=== PATIENT | male | born 1985 | race Caucasian/White ===

== ENCOUNTER 2019-06-30 10:36 | Emergency (ER) | payer SELFPAY ==
[2019-06-30 11:06] VITALS: BP 116/80
[2019-06-30] MEDS ORDERED: Tetan/Diph/Pertus SYR(Tdap)* 0.5 ML SYR(BOOSTRIX) use SYR contains LATEX IM ONE (11:17)
--- NOTE | 2019-06-30 11:18 | UC ---
Laceration HPI - HPI Summary HPI Summary: CHIEF COMPLAINT and HPI: This is a healthy 34-year-old who cut his left thumb with a razor approximately 20 hours ago. the patient has some minimal complaint of pain over the laceration site.he has no complaint of limited mobility or sensation. VITAL SIGNS & SaO2 REVIEWED. Within normal limits unless noted here. NURSES NOTE REVIEWED. Pt was cutting with a slip box changer last night and lacerated his left thumb. - History Of Current Complaint Chief Complaint: UCLaceration Stated Complaint: THUMB LACERATION Time Seen by Provider: 06/30/19 11:17 Pain Intensity: 0 - Allergies/Home Medications Allergies/Adverse Reactions: Allergies Allergy/AdvReac Type Severity Reaction Status Date / Time No Known Allergies Allergy Verified 06/30/19 11:06 Home Medications: Home Medications NK [No Home Medications Reported] 06/30/19 [History Confirmed 06/30/19] PMH/Surg Hx/FS Hx/Imm Hx - Additional Past Medical History Additional PMH: PAST MEDICAL HISTORY- patient denies significant past medical history CHRONIC and RECURRENT HEALTH PROBLEM LIST REVIEWED. Information relevant to present complaint: noncontributory VISIT HISTORY REVIEWED. MEDICATIONS & ALLERGIES REVIEWED. HYPERTENSION STATUS: FAMILY HISTORY: diabetes SOCIAL HISTORY: Smoker:patient is a smoker. Home: lives with his Employment: patient works in maintenance. Previously Healthy: Yes - Surgical History Surgical History: Yes Surgery Procedure, Year, and Place: eye surgery - Social History Alcohol Use: None Substance Use Type: Marijuana Substance Use Comment - Amount & Last Used: marijuana occasional Smoking Status (MU): Heavy Every Day Tobacco Smoker Type: Cigarettes Amount Used/How Often: 1/2 pack daily - Immunization History Most Recent Tetanus Shot: 15 years ago Review of Systems All Other Systems Reviewed And Are Negative: Yes Constitutional: Positive: Negative Respiratory: Positive: Negative Cardiovascular: Positive: Negative Gastrointestinal: Positive: Negative - Clavicle Fracture This is a very pleasant patient who unfortunately has sustained a closed clavicle fracture. On head to toe exam, no other significant injuries were found. Pain was addressed while the patient was in the emergency department. On x-ray, there is no significant evidence of shoulder injury or pneumothorax. On exam there is no tenting of the skin and no significant evidence of compartment syndrome, neurovascular compromise, or other process requiring immediate surgical intervention at this time. It is understood that other fractures, ligament injury, tendon injury, cartilage injury, and joint injury have been considered and cannot be completely excluded. Patient was reassessed after application of an arm sling and neurovascular status remained intact. Pain management and follow-up with an orthopedic surgeon was discussed. It is understood that if the patient is not improving as expected or if other new symptoms or signs of concern develop, other etiologies or diagnoses may need to be considered requiring other tests, treatments, consultations, and/or admission. The diagnosis, plan, expected course, follow-up, and return precautions were discussed and all questions were answered. Is Patient Immunocompromised?: No Physical Exam - Summary Physical Exam Summary: Appearance: The patient is well-appearing, is in no pain or distress, and is well-nourished. Eyes: Conjunctiva are clear. Pupils are equal and reactive to light and accommodation. Extra ocular muscle movement is intact. ENT: The hearing is grossly normal, the pharynx is normal, and the TMs are normal. There is no muffled or hoarse voice. No stridor. Neck: The neck is supple and there is no lymphadenopathy. Respiratory: The chest is non-tender to palpation and without crepitus. The lungs are clear, there are normal breath sounds, and there is no respiratory distress. No wheezes, rales or rhonchi. Cardiovascular: Heart sounds reveal a regular rate and rhythm. There are no clicks, rubs or murmurs. There are no carotid bruits or thrills. Circulation is grossly intact. Abdomen: The abdomen is soft and nontender. There is no organomegaly. Bowel sounds are present and within normal limits. No point tenderness at McBurneys point. No CVA tenderness. Musculoskeletal: Strength is intact. The patient moves all extremities. Neurological: The patient is alert. Motor and sensory are examination grossly intact. Speech is normal. Psychological: The patient displays age appropriate behavior, and is conversant. GCS=15. Skin: Negative for rashes. laceration left thumb: PROCEDURE: There is a 2.5 cm, clean laceration on the ulnar aspect, the distal digit of the left thumb. Circulation, motor and sensory are intact. There is a slight amount of bleeding from the wound. I explained to the patient that this wound is sufficiently old that I would not want to so it up tightly. However, we will clean it and I will place Steri- Strips secured with benzoin to loosely approximate the wound edges. This was accomplished with good hemostasis and the thumb was dressed with tube gauze. Triage Information Reviewed: Yes Vital Signs: Initial Vital Signs Temp 99.5 F 06/30/19 11:03 Pulse 75 06/30/19 11:03 Resp 16 06/30/19 11:03 BP 116/80 06/30/19 11:03 Pulse Ox 100 06/30/19 11:03 Laceration Course/Dx - Course/Dx Course Of Treatment: patient presents with a 20 hour old laceration of the left thumb. The wound site is clean and linear. It was cleaned and Steri-Strips brought the edges loosely together. The area was dressed and tube gauze was placed. The patient knows how to clean the wound morning and evening and he knows to return if there are any signs of infection. My diagnosis is laceration to the left thumb - Diagnosis Provider Diagnosis: Laceration Discharge ED - Sign-Out/Discharge Documenting (check all that apply): Patient Departure All imaging exams completed and their final reports reviewed: No Studies - Discharge Plan Condition: Stable Disposition: HOME Patient Education Materials: Laceration (DC) Referrals: No Primary Care Phys,NOPCP [Primary Care Provider] - Additional Instructions: WE DISCUSSED: PLEASE SEEK CARE AT THE EMERGENCY DEPARTMENT IF SYMPTOMS WORSEN OR IF NEW SYMPTOMS DEVELOP. FOLLOW UP WITH YOUR PRIMARY CARE PHYSICIAN IF CONDITION CONTINUES BEYOND 3 DAYS WITHOUT IMPROVEMENT. YOUR DIAGNOSIS IS:laceration left thumb YOUR PRESCRIPTION RECOMMENDATION IS:none. FOR PAIN AND/OR SLEEP: For pain: Ibuprofen (Motrin and other brand names) 400-600mg PLUS acetaminophen (Tylenol and other brand names) 500mg - 1000mg every 8 hours. Watch for any signs of infection: redness, pain, swelling, fever. Watch for any red lines coming from the wound. Steri strips should be kept dry and protected for the next 5-7 days. They will come off on their own. Keep dressing on for 2-3 days. Remove if any pain, swelling or temperature. - Billing Disposition and Condition Condition: STABLE Disposition: Home
[2019-06-30] MEDS ORDERED: Benzoin Compound STICK TOPICAL ONE (11:30)
== END 2019-06-30 12:04 | disposition home or self-care (01) ==
LOC: UCEAST 10:36
DX: S61.012A Laceration without foreign body of left thumb without damage to nail, initial encounter (principal); W26.8XXA Contact with other sharp object(s), not elsewhere classified, initial encounter; Y92.9 Unspecified place or not applicable; Z23 Encounter for immunization; F17.210 Nicotine dependence, cigarettes, uncomplicated
CPT/HCPCS: 90471; 90715; 99202; G0463

== ENCOUNTER 2019-10-14 14:38 | Emergency (ER) | payer MEDICAID, OTHER ==
[2019-10-14] MEDS ORDERED: Lidocaine 1% MPF ** 5 ML VIAL INJ ONE (14:46)
[2019-10-14 14:56] VITALS: BP 105/55
--- NOTE | 2019-10-14 15:01 | UC ---
Laceration HPI - HPI Summary HPI Summary: 34yo male presenting with for left thumb laceration that occurred just before coming into the clinic. Patient states he "cut the back of the left thumb with a razor blade while trying to cut window screening. States it "bled a lot at first" but has now stopped. Denies pain, stating "it feels numb." Denies decreased ROM. States he is UTD on his tetanus shot. - History Of Current Complaint Chief Complaint: UCUpperExtremity Stated Complaint: THUMB LAC Hx Obtained From: Patient Pain Intensity: 0 - Allergies/Home Medications Allergies/Adverse Reactions: Allergies Allergy/AdvReac Type Severity Reaction Status Date / Time No Known Allergies Allergy Verified 06/30/19 11:06 Home Medications: Home Medications NK [No Home Medications Reported] 06/30/19 [History Confirmed 06/30/19] PMH/Surg Hx/FS Hx/Imm Hx - Surgical History Surgical History: Yes Surgery Procedure, Year, and Place: eye surgery - Social History Alcohol Use: None Substance Use Type: Marijuana Substance Use Comment - Amount & Last Used: marijuana occasional Smoking Status (MU): Heavy Every Day Tobacco Smoker Type: Cigarettes Amount Used/How Often: 1/2 pack daily - Immunization History Most Recent Tetanus Shot: 15 years ago Review of Systems All Other Systems Reviewed And Are Negative: Yes Skin: Positive: Other - left thumb laceration Respiratory: Positive: Negative Cardiovascular: Positive: Negative Musculoskeletal: Negative: Arthralgia, Decreased ROM, Edema Neurological/Mental Status: Positive: Numbness - left thumb. Negative: Paresthesia Physical Exam - Summary Physical Exam Summary: Vital Signs Reviewed: Yes A+Ox3, no distress Eyes: Conjunctiva Clear ENT: Hearing grossly normal neck: supple Respiratory: Positive: No respiratory distress, No accessory muscle use Cardiovascular: skin color reflect adequate perfusion Musculoskeletal Exam: full flexion, extension, abduction and opposition of left thumb, extensor tendons exposed but intact fully, sensation grossly intact Neurological: Positive: Alert, ambulatory without difficulty, see above Psychological: Positive: age appropriate behavior Skin: Positive: 3cm long linear laceration on dorsal aspect of 1st metacarpal and 1st MCP joint exposing extensor tendons, tendons intact, minimally bleeding , no foreign bodies Vital Signs: Initial Vital Signs Temp 99.7 F 10/14/19 14:49 Pulse 78 10/14/19 14:49 Resp 18 10/14/19 14:49 BP 105/55 03/01/20 14:49 Pulse Ox 98 10/14/19 14:49 Laceration Repair - Laceration Repair 1 Description: Linear Laceration Size After Repair: Length (cm) - 3cm Modified For Repair: No Type Injection: Local Anesthesia Used: 1.0% Lido Cleansing Completed Via Routine Prep: Yes Irrigation With Pressure Irrigation Device: Yes Closure Material: Sutures - 5 sutures Closure Method: Single Layer Suture Of: Skin Suture Type: Prolene - 4-0 Laceration Course/Dx - Course/Dx Course Of Treatment: Patient's laceration was cleansed and pressure irrigated with NS. No foreign bodies present. A time out was performed with MARYANN Munoz. I anesthetized with 1% lidocaine and placed five sutures. The wound was then dressed and a splint was applied to immobilize the thumb to promote faster healing. I educated patient on wound and suture care and instructed to keep splint on for duration of healing. I also educated on s/s of infection and instructed to return or go to ED if any red flags occur. Instructed to follow up with physician referral to have stitches removed in 10 days. Patient voiced understanding and agreed with treatment plan. Patient states he is UTD on tetanus. - Diagnosis Provider Diagnosis: Laceration of left thumb without complication Discharge ED - Sign-Out/Discharge Documenting (check all that apply): Patient Departure All imaging exams completed and their final reports reviewed: No Studies - Discharge Plan Condition: Stable Disposition: HOME Patient Education Materials: Care For Your Stitches (ED), Laceration (ED) [place] [facility] [place] [facility] [place]] - 2 Weeks Additional Instructions: You received 5 stitches today. Keep your stitches clean and dry for the first 48 hours. After that you may gently wash with warm water and soap. Keep the splint on to keep the thumb immobilized for duration of healing. Your stitches will not absorb. Return or follow up with the physician referral listed below in 7-10 days to have your stitches removed. You may take over the counter pain medications as directed for pain relief. Return or go to the emergency department if you notice any increasing redness, swelling, fluid drainage, fever, or nausea and vomiting. Call the physician referral listed below to establish with primary care. - Billing Disposition and Condition Condition: STABLE Disposition: Home
== END 2019-10-14 16:00 | disposition home or self-care (01) ==
LOC: UCEAST 14:38
DX: S61.012A Laceration without foreign body of left thumb without damage to nail, initial encounter (principal); F17.210 Nicotine dependence, cigarettes, uncomplicated; W26.8XXA Contact with other sharp object(s), not elsewhere classified, initial encounter; Y92.9 Unspecified place or not applicable
CPT/HCPCS: 12001; 99211; G0463